=== PATIENT | male | born 1965 | race Caucasian/White ===

== ENCOUNTER 2019-03-02 | Emergency (ER) | payer SELFPAY ==
--- NOTE | 2019-03-02 00:08 | EDM.PDOC ---
ED HPI GENERAL MEDICAL PROBLEM - General Chief Complaint: Lower Extremity Injury/Pain Stated Complaint: LT ANKLE HURTS AND HBP Time Seen by Provider: 03/02/19 00:06 - History of Present Illness INITIAL COMMENTS - FREE TEXT/NARRATIVE: HISTORY AND PHYSICAL: History of present illness: Patient is a 53-year-old male presents with a concern of acute left foot and ankle injury this occurred Thursday he states at work he denies other trauma or concern Review of systems: As per history of present illness and below otherwise all systems reviewed and negative. Past medical history: As per history of present illness and as reviewed below otherwise noncontributory. Surgical history: As per history of present illness and as reviewed below otherwise noncontributory. Social history: No reported history of drug or alcohol abuse. Family history: As per history of present illness and as reviewed below otherwise noncontributory. Physical exam: HEENT: Atraumatic, normocephalic, pupils reactive, negative for conjunctival pallor or scleral icterus, mucous membranes moist, throat clear, neck supple, nontender, trachea midline. Lungs: Clear to auscultation, breath sounds equal bilaterally, chest nontender. Heart: S1S2, regular, negative for clicks, rubs, or JVD. Abdomen: Soft, nondistended, nontender. Negative for masses or hepatosplenomegaly. Negative for costovertebral tenderness. Pelvis: Stable nontender. Genitourinary: Deferred. Rectal: Deferred. Extremities: Left foot has mild tenderness and ecchymosis over the dorsal lateral aspect Achilles tendon is intact there is no other point tenderness no proximal fibular tenderness EMS neurovascular exams unremarkable. Neuro: Awake, alert, oriented. Cranial nerves II through XII unremarkable. Cerebellum unremarkable. Motor and sensory unremarkable throughout. Exam nonfocal. Diagnostics: X-ray left ankle/foot Therapeutics: Chay wrap crutches as directed Impression: #1 acute left ankle/foot injury #2 history of hypertension with medical noncompliance Definitive disposition and diagnosis as appropriate pending reevaluation and review of above. Review of Systems - Review of Systems Review Of Systems: ROS reveals no pertinent complaints other than HPI. ED EXAM, GENERAL - Physical Exam Exam: See Below (See dictation) Course - Orders/Labs/Meds Orders: Active Orders 24 hr Category Date Time Status Ankle 2V Lt [CR] Stat Exams 03/02/19 00:05 Ordered Foot 2V Lt [CR] Stat Exams 03/02/19 00:05 Ordered Departure - Departure Time of Disposition: 00:07 Disposition: Home, Self-Care 01 Condition: Good Clinical Impression: Ankle injury, Foot injury - Discharge Information Additional Instructions: The following information is given to patients seen in the emergency department who are being discharged to home. This information is to outline your options for follow-up care. We provide all patients seen in our emergency department with a follow-up referral. The need for follow-up, as well as the timing and circumstances, are variable depending upon the specifics of your emergency department visit. If you don't have a primary care physician on staff, we will provide you with a referral. We always advise you to contact your personal physician following an emergency department visit to inform them of the circumstance of the visit and for follow-up with them and/or the need for any referrals to a consulting specialist. The emergency department will also refer you to a specialist when appropriate. This referral assures that you have the opportunity for followup care with a specialist. All of these measure are taken in an effort to provide you with optimal care, which includes your followup. Under all circumstances we always encourage you to contact your private physician who remains a resource for coordinating your care. When calling for followup care, please make the office aware that this follow-up is from your recent emergency room visit. If for any reason you are refused follow-up, please contact the [facility] emergency department at and asked to speak to the emergency department charge nurse. A strip/crutches as directed Motrin/Tylenol directed follow-up primary medical doctor return as needed as discussed - My Orders Last 24 Hours: My Active Orders 03/02/19 00:05 Ankle 2V Lt [CR] Stat Foot 2V Lt [CR] Stat - Assessment/Plan Last 24 Hours: My Active Orders 03/02/19 00:05 Ankle 2V Lt [CR] Stat Foot 2V Lt [CR] Stat
[2019-03-02] MEDS ORDERED: Acetaminophen 500 MG Tab PO ONE (00:14)
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
--- NOTE | 2019-03-02 00:41 | CR ---
HISTORY: Pain after tripping COMPARISON: None available. FINDINGS: The left foot is examined with AP and lateral views. There is no sign of fracture or dislocation. The soft tissues are normal in appearance without sign of radio-opaque foreign body. No significant degenerative disease is seen. IMPRESSION: Normal left foot. Dictated by Fuad Dumont MD @ Mar 02 2019 12:37AM Signed by Dr. Fuad Dumont @ Mar 02 2019 12:39AM
== END 2019-03-02 01:00 | disposition home or self-care (01) ==
LOC: MW.ED
DX: S99.912A Unspecified injury of left ankle, initial encounter (principal); S99.922A Unspecified injury of left foot, initial encounter; I10 Essential (primary) hypertension; Z91.14 Patient's other noncompliance with medication regimen; W18.40XA Slipping, tripping and stumbling without falling, unspecified, initial encounter; Y99.0 Civilian activity done for income or pay
CPT/HCPCS: 73610; 73620; 99283; A9270; 99282